=== PATIENT | female | born 1990 | race Caucasian/White ===

== ENCOUNTER 2016-11-20 22:53 | Inpatient (IN) | payer MEDICAID ==
[~2016-11-20 22:53] MED LIST: BENADRYL25 M3 PO; COLACE100 M1 PO; DELTASONE20 MG PO; FEROSUL325 M1 PO; NORCO 5-325 TA1 EACH PO; OMEPRAZOLE20 M4 PO; OXYCODONE HCL5 M1 PO; PREDNISONE10 M1 PO; PROGRAF IV; PROGRAF1 M1 PO; SENOKOT-S TABL1 EACH PO; ZOFRAN ODT4 MG PO
[2016-11-21 00:31] LABS: BASO % 0.7 % (0-2); BASO ABSOLUTE COUNT 0.1 tho/cmm (0.0-0.2); EOS % 0.7 % (0-7); EOSINOPHIL ABSOLUTE COUNT 0.1 tho/cmm (0.0-0.7); HCT-HEMATOCRIT 28.1 % (34.0-49.0); HGB-HEMOGLOBIN 8.5 gm/dl (12.0-15.5); IMMATURE GRANULOCYTES ABSOLUTE 0.01 tho/cmm (0-0.03); IMMATURE GRANULOCYTES PERCENT 0.1 % (0-0.3); LYMPH % 11.9 % (20-45); LYMPH ABSOLUTE COUNT 0.9 tho/cmm (0.8-4.5); MCH (MEAN CORPUSCULAR HGB) 21.7 pg (28.0-32.0); MCHC MEAN CORPUSCULAR HGB CONC 30.2 % (32.0-36.0); MCV (MEAN CELL VOLUME) 71.9 fl (82.0-96.0); MONO % 4.9 % (0-12); MONOCYTE ABSOLUTE COUNT 0.4 tho/cmm (0.0-1.2); NEUTROPHILS % 81.7 % (40-80); PLATELET COUNT 211 tho/cmm (150-450); RED BLOOD COUNT 3.91 mil/cmm (4.00-5.20); RED CELL DISTRIBUTION WIDTH 18.8 % (12.4-16.4); WHITE BLOOD COUNT 7.3 tho/cmm (4.0-10.0)
[2016-11-21 00:34] LABS: ALT/SGPT 168 U/L (12-78); AMYLASE 134 U/L (20-90); ANION GAP 15 mmol/L (0-20); AST/SGOT 259 U/L (10-40); BILIRUBIN,TOTAL 11.4 mg/dl (0-1.5); BLOOD UREA NITROGEN 10 mg/dl (6-24); CALCIUM 9.1 mg/dl (8.5-10.5); CARBON DIOXIDE-VENOUS 21 mmol/L (22-32); CHLORIDE 104 mmol/l (96-110); CREATININE 0.59 mg/dl (0.50-1.10); GLUCOSE 97 mg/dL (70-110); LIPASE 302 U/L (73-393); POTASSIUM 3.5 mmol/L (3.7-5.1); SODIUM 136 mmol/L (135-145); eGFR VALUE FOR BLACK >90 mL/Min
[2016-11-21 00:41] LABS: PREGNANCY-SERUM NEGATIVE (NEGATIVE)
[2016-11-21 00:44] LABS: ALB/GLOB RATIO 0.6 (0.8-2.0); ALBUMIN 3.4 g/dl (3.5-5.0)
[2016-11-21 01:27] LABS: ALKALINE PHOSPHATASE 1510 U/L (33-138)
[2016-11-21 02:37] LABS: URINE BILIRUBIN MODERATE (NEG); URINE BLOOD MODERATE (NEG); URINE GLUCOSE (UA) NEGATIVE (NEG); URINE KETONE MODERATE (NEG); URINE LEUKOCYTE ESTERASE POSITIVE (NEG); URINE NITRITE POSITIVE (NEG); URINE PROTEIN SMALL (NEG)
[2016-11-21 02:41] LABS: URINE APPEARANCE HAZY; URINE COLOR DARK YELLOW
[2016-11-21 02:47] LABS: URINE WBC 20-25 /[HPF] (0-5)
[2016-11-21 02:48] LABS: URINE BACTERIA 4+; URINE EPITHELIAL CELLS RARE /[HPF] (0-10)
[2016-11-21 07:26] LABS: INR 1.1 INR (0.9-1.1); PROTHROMBIN TIME 12.7 SECONDS (9.0-13.6)
[2016-11-21 07:32] LABS: ALCOHOL (ETOH) <10 mg/dl (<10); PHOSPHOROUS 2.1 mg/dl (2.5-4.9)
[2016-11-21 07:34] LABS: C-REACTIVE PROTEIN <0.3 mg/dl (0-0.9)
[2016-11-21 08:19] LABS: PROCALCITONIN 0.19 ng/ml (0.05-0.09)
[2016-11-21 20:53] LABS: C-REACTIVE PROTEIN 0.4 mg/dl (0-0.9); MAGNESIUM 2.1 mg/dl (1.3-2.6); PHOSPHOROUS 1.7 mg/dl (2.5-4.9)
[2016-11-21 21:06] LABS: PROCALCITONIN 0.22 ng/ml (0.05-0.09)
[2016-11-22 06:17] LABS: INR 1.1 INR (0.9-1.1); PROTHROMBIN TIME 12.5 SECONDS (9.0-13.6)
[2016-11-22 06:23] LABS: ALB/GLOB RATIO 0.6 (0.8-2.0); ALBUMIN 2.9 g/dl (3.5-5.0); ALT/SGPT 207 U/L (12-78); AMYLASE 72 U/L (20-90); ANION GAP 16 mmol/L (0-20); AST/SGOT 300 U/L (10-40); BILIRUBIN,DIRECT 9.3 mg/dl (0.0-0.3); BILIRUBIN,INDIRECT 1.3 mg/dL (0.0-1.0); BILIRUBIN,TOTAL 10.6 mg/dl (0-1.5); BLOOD UREA NITROGEN 7 mg/dl (6-24); CALCIUM 8.7 mg/dl (8.5-10.5); CARBON DIOXIDE-VENOUS 18 mmol/L (22-32); CHLORIDE 105 mmol/l (96-110); CREATININE 0.57 mg/dl (0.50-1.10); GLUCOSE 99 mg/dL (70-110); LIPASE 132 U/L (73-393); POTASSIUM 3.5 mmol/L (3.7-5.1); SODIUM 135 mmol/L (135-145); eGFR VALUE FOR BLACK >90 mL/Min
[2016-11-22 06:36] LABS: C-REACTIVE PROTEIN 0.4 mg/dl (0-0.9)
[2016-11-22 06:37] LABS: BASO % 0.4 % (0-2); EOS % 0.2 % (0-7); HCT-HEMATOCRIT 26.5 % (34.0-49.0); HGB-HEMOGLOBIN 7.8 gm/dl (12.0-15.5); IMMATURE GRANULOCYTES ABSOLUTE 0.01 tho/cmm (0-0.03); IMMATURE GRANULOCYTES PERCENT 0.2 % (0-0.3); LYMPH % 10.7 % (20-45); LYMPH ABSOLUTE COUNT 0.5 tho/cmm (0.8-4.5); MCH (MEAN CORPUSCULAR HGB) 21.5 pg (28.0-32.0); MCHC MEAN CORPUSCULAR HGB CONC 29.4 % (32.0-36.0); MONO % 1.4 % (0-12); MONOCYTE ABSOLUTE COUNT 0.1 tho/cmm (0.0-1.2); NEUTROPHIL ABSOLUTE COUNT 4.4 tho/cmm (1.6-8.0); NEUTROPHIL-AUTOMATED 4.4 tho/cmm (1.6-8.0); NEUTROPHILS % 87.1 % (40-80); PLATELET COUNT 141 tho/cmm (150-450); RED BLOOD COUNT 3.63 mil/cmm (4.00-5.20); RED CELL DISTRIBUTION WIDTH 18.8 % (12.4-16.4); WHITE BLOOD COUNT 5.1 tho/cmm (4.0-10.0)
[2016-11-22 06:51] LABS: ALKALINE PHOSPHATASE 1246 U/L (33-138)
[2016-11-22 07:35] LABS: ESR-ERYTHROCYTE SED RATE 69 mm/hr (0-20)
== END 2016-11-22 16:45 | disposition other institution (70) | DRG 872 ==
LOC: EDMED 22:53 → 5WE 11-21 12:00
PROVIDERS: Hospitalist; Internal Medicine; Physician Assistant; ADMIT Hospitalist
PROC: 3E0F7GC Introduction of Other Therapeutic Substance into Respiratory Tract, Via Natural or Artificial Opening (ICD-10-PCS; principal; 2016-11-21)
DX: A41.9 Sepsis, unspecified organism (principal); T86.41 Liver transplant rejection; K83.0 Cholangitis; K51.90 Ulcerative colitis, unspecified, without complications; N39.0 Urinary tract infection, site not specified; Z94.4 Liver transplant status; D50.9 Iron deficiency anemia, unspecified; K72.90 Hepatic failure, unspecified without coma; R94.5 Abnormal results of liver function studies; Z91.19 Patient's noncompliance with other medical treatment and regimen; Z92.25 Personal history of immunosuppression therapy; B96.89 Other specified bacterial agents as the cause of diseases classified elsewhere
CPT/HCPCS: G0480; J0744; J1170; J1200; J2270; J2405; J2920; J7030; J7507; J7512

== ENCOUNTER 2016-12-04 18:13 | Emergency (ER) | payer MEDICAID ==
[2016-12-04 19:27] LABS: BASO % 0.7 % (0-2); EOS % 1.1 % (0-7); EOSINOPHIL ABSOLUTE COUNT 0.1 tho/cmm (0.0-0.7); HCT-HEMATOCRIT 30.3 % (34.0-49.0); HGB-HEMOGLOBIN 8.9 gm/dl (12.0-15.5); IMMATURE GRANULOCYTES ABSOLUTE 0.01 tho/cmm (0-0.03); IMMATURE GRANULOCYTES PERCENT 0.2 % (0-0.3); LYMPH % 16.8 % (20-45); LYMPH ABSOLUTE COUNT 0.9 tho/cmm (0.8-4.5); MCH (MEAN CORPUSCULAR HGB) 20.8 pg (28.0-32.0); MCHC MEAN CORPUSCULAR HGB CONC 29.4 % (32.0-36.0); MEAN PLATELET VOLUME 10.6 cmc (9.4-12.4); MONO % 5.6 % (0-12); MONOCYTE ABSOLUTE COUNT 0.3 tho/cmm (0.0-1.2); NEUTROPHIL ABSOLUTE COUNT 4.1 tho/cmm (1.6-8.0); NEUTROPHIL-AUTOMATED 4.1 tho/cmm (1.6-8.0); NEUTROPHILS % 75.6 % (40-80); PLATELET COUNT 359 tho/cmm (150-450); RED BLOOD COUNT 4.27 mil/cmm (4.00-5.20); RED CELL DISTRIBUTION WIDTH 21.5 % (12.4-16.4); WHITE BLOOD COUNT 5.4 tho/cmm (4.0-10.0)
[2016-12-04 19:41] LABS: URINE APPEARANCE HAZY; URINE BILIRUBIN MODERATE (NEG); URINE BLOOD NEGATIVE (NEG); URINE COLOR DARK YELLOW; URINE GLUCOSE (UA) NEGATIVE (NEG); URINE KETONE MODERATE (NEG); URINE LEUKOCYTE ESTERASE POSITIVE (NEG); URINE NITRITE NEGATIVE (NEG); URINE PROTEIN SMALL (NEG)
[2016-12-04 19:43] LABS: PREGNANCY-SERUM NEGATIVE (NEGATIVE)
[2016-12-04 19:55] LABS: ALB/GLOB RATIO 0.7 (0.8-2.0); ALBUMIN 3.5 g/dl (3.5-5.0); ALT/SGPT 161 U/L (12-78); ANION GAP 15 mmol/L (0-20); AST/SGOT 178 U/L (10-40); BILIRUBIN,DIRECT 7.6 mg/dl (0.0-0.3); BILIRUBIN,INDIRECT 1.2 mg/dL (0.0-1.0); BILIRUBIN,TOTAL 8.8 mg/dl (0-1.5); BLOOD UREA NITROGEN 7 mg/dl (6-24); CALCIUM 8.7 mg/dl (8.5-10.5); CARBON DIOXIDE-VENOUS 20 mmol/L (22-32); CHLORIDE 106 mmol/l (96-110); CREATININE 0.53 mg/dl (0.50-1.10); GLUCOSE 83 mg/dL (70-110); LIPASE 259 U/L (73-393); POTASSIUM 3.8 mmol/L (3.7-5.1); SODIUM 137 mmol/L (135-145); eGFR VALUE FOR BLACK >90 mL/Min
[2016-12-04 19:57] LABS: URINE AMORPHOUS 1+; URINE RBC RARE /[HPF] (0-5); URINE WBC RARE /[HPF] (0-5)
[2016-12-04 20:06] LABS: ALKALINE PHOSPHATASE 1310 U/L (33-138)
[2016-12-04 20:21] LABS: INR 1.1 INR (0.9-1.1); PROTHROMBIN TIME 12.7 SECONDS (9.0-13.6)
[2016-12-04] MEDS ORDERED: BENADRYL25 M3 PO (22:10)
[2016-12-04] MEDS ORDERED: PHENERGAN12.5 M2 PR (22:10)
== END 2016-12-04 22:20 ==
LOC: EDMED 18:13
PROVIDERS: Emergency Medicine
DX: D64.9 Anemia, unspecified (principal); T86.810 Lung transplant rejection; R10.9 Unspecified abdominal pain; Z90.49 Acquired absence of other specified parts of digestive tract
CPT/HCPCS: J1170; J1200; J2405

== ENCOUNTER 2016-12-08 13:45 | Emergency (ER) | payer MEDICAID ==
[~2016-12-08 13:45] MED LIST changes: +PHENERGAN12.5 M2 PR
[2016-12-08] MEDS ORDERED: NORCO 5-325 TA1 EACH PO (15:44)
[2016-12-09] MEDS ORDERED: NORCO 5-325 TA1 EACH PO (01:37)
[2016-12-09] MEDS ORDERED: PREDNISONE PO (05:24)
[2016-12-09] MEDS ORDERED: PROGRAF0.5 M1 PO (05:25)
[2016-12-09] MEDS ORDERED: CIPRO250 M2 PO (15:02)
== END 2016-12-08 15:50 ==
LOC: EDMED 13:45
PROC: 2W39XYZ Immobilization of Left Upper Extremity using Other Device (ICD-10-PCS; principal; 2016-12-08)
DX: S66.912A Strain of unspecified muscle, fascia and tendon at wrist and hand level, left hand, initial encounter (principal); W06.XXXA Fall from bed, initial encounter; Y92.009 Unspecified place in unspecified non-institutional (private) residence as the place of occurrence of the external cause
CPT/HCPCS: J1170

== ENCOUNTER 2016-12-09 01:22 | Observation (INO) | payer MEDICAID ==
[2016-12-09] MEDS ORDERED: NORCO 5-325 TA1 EACH PO (01:37)
[2016-12-09 03:21] LABS: BASO % 0.3 % (0-2); EOS % 0.6 % (0-7); HCT-HEMATOCRIT 28.3 % (34.0-49.0); HGB-HEMOGLOBIN 8.3 gm/dl (12.0-15.5); IMMATURE GRANULOCYTES ABSOLUTE 0.01 tho/cmm (0-0.03); IMMATURE GRANULOCYTES PERCENT 0.2 % (0-0.3); LYMPH % 19.7 % (20-45); LYMPH ABSOLUTE COUNT 1.3 tho/cmm (0.8-4.5); MCH (MEAN CORPUSCULAR HGB) 21.1 pg (28.0-32.0); MCHC MEAN CORPUSCULAR HGB CONC 29.3 % (32.0-36.0); MCV (MEAN CELL VOLUME) 71.8 fl (82.0-96.0); MONO % 7.4 % (0-12); MONOCYTE ABSOLUTE COUNT 0.5 tho/cmm (0.0-1.2); NEUTROPHIL ABSOLUTE COUNT 4.7 tho/cmm (1.6-8.0); NEUTROPHIL-AUTOMATED 4.7 tho/cmm (1.6-8.0); NEUTROPHILS % 71.8 % (40-80); PLATELET COUNT 194 tho/cmm (150-450); RED BLOOD COUNT 3.94 mil/cmm (4.00-5.20); RED CELL DISTRIBUTION WIDTH 21.8 % (12.4-16.4); WHITE BLOOD COUNT 6.5 tho/cmm (4.0-10.0)
[2016-12-09 03:23] LABS: PROTHROMBIN TIME 11.8 SECONDS (9.0-13.6)
[2016-12-09 03:38] LABS: URINE BILIRUBIN MODERATE (NEG); URINE BLOOD LARGE (NEG); URINE GLUCOSE (UA) NEGATIVE (NEG); URINE KETONE SMALL (NEG); URINE LEUKOCYTE ESTERASE POSITIVE (NEG); URINE NITRITE NEGATIVE (NEG); URINE PROTEIN MODERATE (NEG)
[2016-12-09 03:42] LABS: URINE APPEARANCE HAZY; URINE COLOR BROWN
[2016-12-09 04:00] LABS: ALB/GLOB RATIO 0.6 (0.8-2.0); ALBUMIN 3.2 g/dl (3.5-5.0); ALT/SGPT 134 U/L (12-78); AST/SGOT 149 U/L (10-40); BLOOD UREA NITROGEN 5 mg/dl (6-24); CALCIUM 8.5 mg/dl (8.5-10.5); CARBON DIOXIDE-VENOUS 20 mmol/L (22-32); CHLORIDE 105 mmol/l (96-110); CREATININE 0.52 mg/dl (0.50-1.10); GLUCOSE 103 mg/dL (70-110); SODIUM 136 mmol/L (135-145); eGFR VALUE FOR BLACK >90 mL/Min
[2016-12-09 04:02] LABS: ANION GAP 14 mmol/L (0-20); C-REACTIVE PROTEIN <0.3 mg/dl (0-0.9)
[2016-12-09 04:24] LABS: PROCALCITONIN 0.11 ng/ml (0.05-0.09)
[2016-12-09 04:41] LABS: ALKALINE PHOSPHATASE 1105 U/L (33-138)
[2016-12-09] MEDS ORDERED: PREDNISONE PO (05:24)
[2016-12-09] MEDS ORDERED: PROGRAF0.5 M1 PO (05:25)
[2016-12-09] MEDS ORDERED: CIPRO250 M2 PO (15:02)
== END 2016-12-09 16:13 ==
LOC: EDMED 01:22 → EMR2 04:24 → CAR1 05:14
PROVIDERS: Emergency Medicine; ADMIT Hospitalist
DX: S59.202A Unspecified physeal fracture of lower end of radius, left arm, initial encounter for closed fracture (principal); E87.6 Hypokalemia; D64.9 Anemia, unspecified; K76.9 Liver disease, unspecified; Z87.442 Personal history of urinary calculi; Z87.19 Personal history of other diseases of the digestive system; Z90.49 Acquired absence of other specified parts of digestive tract; Z79.899 Other long term (current) drug therapy; W01.0XXA Fall on same level from slipping, tripping and stumbling without subsequent striking against object, initial encounter; Z98.890 Other specified postprocedural states
CPT/HCPCS: G0378; G8978-GP-CI; G8979-GP-CI; G8980-GP-CI; J0696; J1170; J1200; J2060; J2270; J2405; J7030; J7512

== ENCOUNTER 2016-12-16 18:41 | Inpatient (IN) | payer MEDICAID ==
[~2016-12-16 18:41] MED LIST changes: +CIPRO250 M2 PO; +PREDNISONE PO; +PROGRAF0.5 M1 PO
[2016-12-16 19:54] LABS: BASO % 0.5 % (0-2); EOS % 0.7 % (0-7); HGB-HEMOGLOBIN 8.9 gm/dl (12.0-15.5); LYMPH % 22.9 % (20-45); LYMPH ABSOLUTE COUNT 0.9 tho/cmm (0.8-4.5); MCH (MEAN CORPUSCULAR HGB) 20.7 pg (28.0-32.0); MCHC MEAN CORPUSCULAR HGB CONC 28.7 % (32.0-36.0); MCV (MEAN CELL VOLUME) 72.1 fl (82.0-96.0); MONOCYTE ABSOLUTE COUNT 0.3 tho/cmm (0.0-1.2); NEUTROPHIL ABSOLUTE COUNT 2.8 tho/cmm (1.6-8.0); NEUTROPHIL-AUTOMATED 2.8 tho/cmm (1.6-8.0); NEUTROPHILS % 68.9 % (40-80); PLATELET COUNT 347 tho/cmm (150-450); RED CELL DISTRIBUTION WIDTH 21.5 % (12.4-16.4)
[2016-12-16 19:55] LABS: PROTHROMBIN TIME 11.8 SECONDS (9.0-13.6)
[2016-12-16 20:12] LABS: ALB/GLOB RATIO 0.6 (0.8-2.0); ALBUMIN 3.3 g/dl (3.5-5.0); ALT/SGPT 132 U/L (12-78); ANION GAP 16 mmol/L (0-20); AST/SGOT 152 U/L (10-40); BILIRUBIN,TOTAL 6.8 mg/dl (0-1.5); BILIRUBIN,TOTAL 7.1 mg/dl (0-1.5); BLOOD UREA NITROGEN 11 mg/dl (6-24); CALCIUM 8.7 mg/dl (8.5-10.5); CARBON DIOXIDE-VENOUS 17 mmol/L (22-32); CHLORIDE 111 mmol/l (96-110); CREATININE 0.57 mg/dl (0.50-1.10); GLUCOSE 87 mg/dL (70-110); LIPASE 351 U/L (73-393); POTASSIUM 3.8 mmol/L (3.7-5.1); SODIUM 140 mmol/L (135-145); eGFR VALUE FOR BLACK >90 mL/Min
[2016-12-16 20:22] LABS: ALKALINE PHOSPHATASE 961 U/L (33-138)
[2016-12-16 21:03] LABS: URINE BILIRUBIN MODERATE (NEG); URINE BLOOD SMALL (NEG); URINE GLUCOSE (UA) NEGATIVE (NEG); URINE KETONE MODERATE (NEG); URINE LEUKOCYTE ESTERASE POSITIVE (NEG); URINE NITRITE POSITIVE (NEG); URINE PROTEIN MODERATE (NEG)
[2016-12-16 21:04] LABS: URINE APPEARANCE HAZY; URINE COLOR DARK YELLOW
[2016-12-16 21:12] LABS: URINE RBC 0-3 /[HPF] (0-5)
[2016-12-16 21:13] LABS: URINE BACTERIA 2+; URINE MUCUS 1+
[2016-12-17 05:04] LABS: BASO % 0.3 % (0-2); EOS % 1.5 % (0-7); EOSINOPHIL ABSOLUTE COUNT 0.1 tho/cmm (0.0-0.7); HCT-HEMATOCRIT 26.4 % (34.0-49.0); HGB-HEMOGLOBIN 7.4 gm/dl (12.0-15.5); LYMPH % 32.7 % (20-45); LYMPH ABSOLUTE COUNT 1.1 tho/cmm (0.8-4.5); MCH (MEAN CORPUSCULAR HGB) 20.4 pg (28.0-32.0); MCV (MEAN CELL VOLUME) 72.9 fl (82.0-96.0); MONOCYTE ABSOLUTE COUNT 0.3 tho/cmm (0.0-1.2); NEUTROPHILS % 57.5 % (40-80); RED BLOOD COUNT 3.62 mil/cmm (4.00-5.20); RED CELL DISTRIBUTION WIDTH 21.3 % (12.4-16.4); WHITE BLOOD COUNT 3.4 tho/cmm (4.0-10.0)
[2016-12-17 05:47] LABS: CHLORIDE 116 mmol/l (96-110); POTASSIUM 3.7 mmol/L (3.7-5.1); SODIUM 143 mmol/L (135-145)
[2016-12-17 05:59] LABS: ANION GAP 14 mmol/L (0-20); BLOOD UREA NITROGEN 8 mg/dl (6-24); CALCIUM 7.7 mg/dl (8.5-10.5); CARBON DIOXIDE-VENOUS 17 mmol/L (22-32); CREATININE 0.54 mg/dl (0.50-1.10); eGFR VALUE FOR BLACK >90 mL/Min
[2016-12-17 06:18] LABS: GLUCOSE 63 mg/dL (70-110)
[2016-12-17 07:00] LABS: PLATELET COUNT 262 tho/cmm (150-450)
[2016-12-17 16:38] LABS: HCT-HEMATOCRIT 26.3 % (34.0-49.0); HGB-HEMOGLOBIN 7.4 gm/dl (12.0-15.5); MCV (MEAN CELL VOLUME) 73.1 fl (82.0-96.0); RED CELL DISTRIBUTION WIDTH 20.9 % (12.4-16.4)
[2016-12-18 05:35] LABS: BASO % 0.5 % (0-2); HCT-HEMATOCRIT 29.5 % (34.0-49.0); HGB-HEMOGLOBIN 8.2 gm/dl (12.0-15.5); LYMPH % 18.8 % (20-45); LYMPH ABSOLUTE COUNT 0.4 tho/cmm (0.8-4.5); MCH (MEAN CORPUSCULAR HGB) 20.2 pg (28.0-32.0); MCV (MEAN CELL VOLUME) 72.8 fl (82.0-96.0); MONO % 1.4 % (0-12); NEUTROPHIL ABSOLUTE COUNT 1.7 tho/cmm (1.6-8.0); NEUTROPHIL-AUTOMATED 1.7 tho/cmm (1.6-8.0); NEUTROPHILS % 79.3 % (40-80); PLATELET COUNT 294 tho/cmm (150-450); RED BLOOD COUNT 4.05 mil/cmm (4.00-5.20); RED CELL DISTRIBUTION WIDTH 20.7 % (12.4-16.4); WHITE BLOOD COUNT 2.2 tho/cmm (4.0-10.0)
[2016-12-18 05:54] LABS: ALB/GLOB RATIO 0.6 (0.8-2.0); ALBUMIN 2.7 g/dl (3.5-5.0); ALT/SGPT 127 U/L (12-78); ANION GAP 12 mmol/L (0-20); AST/SGOT 158 U/L (10-40); BILIRUBIN,TOTAL 5.3 mg/dl (0-1.5); BLOOD UREA NITROGEN 10 mg/dl (6-24); CALCIUM 8.4 mg/dl (8.5-10.5); CARBON DIOXIDE-VENOUS 19 mmol/L (22-32); CHLORIDE 113 mmol/l (96-110); CREATININE 0.54 mg/dl (0.50-1.10); MAGNESIUM 2.2 mg/dl (1.8-2.6); POTASSIUM 3.9 mmol/L (3.7-5.1); SODIUM 140 mmol/L (135-145); eGFR VALUE FOR BLACK >90 mL/Min
[2016-12-18 06:12] LABS: ALKALINE PHOSPHATASE 845 U/L (33-138); GLUCOSE 147 mg/dL (70-110)
[2016-12-18 06:21] LABS: MCHC MEAN CORPUSCULAR HGB CONC 27.8 % (32.0-36.0)
[2016-12-19 05:48] LABS: HCT-HEMATOCRIT 26.9 % (34.0-49.0); HGB-HEMOGLOBIN 7.4 gm/dl (12.0-15.5); IMMATURE GRANULOCYTES ABSOLUTE 0.01 tho/cmm (0-0.03); IMMATURE GRANULOCYTES PERCENT 0.3 % (0-0.3); LYMPH % 13.4 % (20-45); LYMPH ABSOLUTE COUNT 0.4 tho/cmm (0.8-4.5); MCH (MEAN CORPUSCULAR HGB) 20.2 pg (28.0-32.0); MCV (MEAN CELL VOLUME) 73.3 fl (82.0-96.0); MONO % 3.4 % (0-12); MONOCYTE ABSOLUTE COUNT 0.1 tho/cmm (0.0-1.2); NEUTROPHIL ABSOLUTE COUNT 2.7 tho/cmm (1.6-8.0); NEUTROPHIL-AUTOMATED 2.7 tho/cmm (1.6-8.0); NEUTROPHILS % 82.9 % (40-80); PLATELET COUNT 222 tho/cmm (150-450); RED BLOOD COUNT 3.67 mil/cmm (4.00-5.20); RED CELL DISTRIBUTION WIDTH 20.8 % (12.4-16.4); WHITE BLOOD COUNT 3.2 tho/cmm (4.0-10.0)
[2016-12-19 05:50] LABS: MCHC MEAN CORPUSCULAR HGB CONC <29.0 % (32.0-36.0)
[2016-12-19 06:04] LABS: ALB/GLOB RATIO 0.5 (0.8-2.0); ALBUMIN 2.6 g/dl (3.5-5.0); ALT/SGPT 154 U/L (12-78); ANION GAP 13 mmol/L (0-20); AST/SGOT 164 U/L (10-40); BILIRUBIN,DIRECT 4.3 mg/dl (0.0-0.3); BILIRUBIN,INDIRECT 0.3 mg/dL (0.0-1.0); BILIRUBIN,TOTAL 4.6 mg/dl (0-1.5); BLOOD UREA NITROGEN 7 mg/dl (6-24); CARBON DIOXIDE-VENOUS 19 mmol/L (22-32); CHLORIDE 115 mmol/l (96-110); CREATININE 0.56 mg/dl (0.50-1.10); GLUCOSE 125 mg/dL (70-110); POTASSIUM 3.8 mmol/L (3.7-5.1); SODIUM 143 mmol/L (135-145); eGFR VALUE FOR BLACK >90 mL/Min
[2016-12-19 06:05] LABS: ALKALINE PHOSPHATASE 759 U/L (33-138)
[2016-12-20 05:28] LABS: HCT-HEMATOCRIT 28.7 % (34.0-49.0); IMMATURE GRANULOCYTES ABSOLUTE 0.01 tho/cmm (0-0.03); IMMATURE GRANULOCYTES PERCENT 0.3 % (0-0.3); LYMPH % 15.2 % (20-45); LYMPH ABSOLUTE COUNT 0.6 tho/cmm (0.8-4.5); MCH (MEAN CORPUSCULAR HGB) 20.4 pg (28.0-32.0); MCV (MEAN CELL VOLUME) 73.2 fl (82.0-96.0); MEAN PLATELET VOLUME 10.4 cmc (9.4-12.4); MONO % 5.2 % (0-12); MONOCYTE ABSOLUTE COUNT 0.2 tho/cmm (0.0-1.2); NEUTROPHILS % 79.3 % (40-80); PLATELET COUNT 283 tho/cmm (150-450); RED BLOOD COUNT 3.92 mil/cmm (4.00-5.20); RED CELL DISTRIBUTION WIDTH 20.6 % (12.4-16.4); WHITE BLOOD COUNT 3.8 tho/cmm (4.0-10.0)
[2016-12-20 05:33] LABS: MCHC MEAN CORPUSCULAR HGB CONC 27.9 % (32.0-36.0)
[2016-12-20 05:57] LABS: ALB/GLOB RATIO 0.6 (0.8-2.0); ALBUMIN 2.8 g/dl (3.5-5.0); ALT/SGPT 195 U/L (12-78); ANION GAP 11 mmol/L (0-20); AST/SGOT 188 U/L (10-40); BILIRUBIN,TOTAL 4.5 mg/dl (0-1.5); CALCIUM 8.3 mg/dl (8.5-10.5); CARBON DIOXIDE-VENOUS 23 mmol/L (22-32); CHLORIDE 109 mmol/l (96-110); CREATININE 0.55 mg/dl (0.50-1.10); GLUCOSE 126 mg/dL (70-110); POTASSIUM 3.8 mmol/L (3.7-5.1); SODIUM 139 mmol/L (135-145); eGFR VALUE FOR BLACK >90 mL/Min
[2016-12-20 06:06] LABS: BLOOD UREA NITROGEN 8 mg/dl (6-24)
[2016-12-20 06:12] LABS: ALKALINE PHOSPHATASE 723 U/L (33-138)
[2016-12-21 06:49] LABS: EOS % 0.4 % (0-7); HCT-HEMATOCRIT 29.6 % (34.0-49.0); HGB-HEMOGLOBIN 8.3 gm/dl (12.0-15.5); IMMATURE GRANULOCYTES ABSOLUTE 0.01 tho/cmm (0-0.03); IMMATURE GRANULOCYTES PERCENT 0.2 % (0-0.3); LYMPH % 16.2 % (20-45); LYMPH ABSOLUTE COUNT 0.8 tho/cmm (0.8-4.5); MCH (MEAN CORPUSCULAR HGB) 20.2 pg (28.0-32.0); MONOCYTE ABSOLUTE COUNT 0.3 tho/cmm (0.0-1.2); NEUTROPHIL ABSOLUTE COUNT 3.6 tho/cmm (1.6-8.0); NEUTROPHIL-AUTOMATED 3.6 tho/cmm (1.6-8.0); NEUTROPHILS % 77.2 % (40-80); PLATELET COUNT 262 tho/cmm (150-450); RED BLOOD COUNT 4.11 mil/cmm (4.00-5.20); RED CELL DISTRIBUTION WIDTH 20.6 % (12.4-16.4); WHITE BLOOD COUNT 4.6 tho/cmm (4.0-10.0)
[2016-12-21 06:59] LABS: ALB/GLOB RATIO 0.6 (0.8-2.0); ALBUMIN 2.9 g/dl (3.5-5.0); ALT/SGPT 254 U/L (12-78); ANION GAP 11 mmol/L (0-20); AST/SGOT 242 U/L (10-40); BILIRUBIN,TOTAL 4.2 mg/dl (0-1.5); BLOOD UREA NITROGEN 11 mg/dl (6-24); CALCIUM 8.2 mg/dl (8.5-10.5); CARBON DIOXIDE-VENOUS 26 mmol/L (22-32); CHLORIDE 109 mmol/l (96-110); CREATININE 0.62 mg/dl (0.50-1.10); GLUCOSE 123 mg/dL (70-110); MAGNESIUM 2.7 mg/dl (1.8-2.6); SODIUM 142 mmol/L (135-145); eGFR VALUE FOR BLACK >90 mL/Min
[2016-12-21 07:03] LABS: ALKALINE PHOSPHATASE 770 U/L (33-138)
[2016-12-22] MEDS ORDERED: PREDNISONE PO (09:30)
== END 2016-12-22 10:21 | DRG 386 ==
LOC: EDMED 18:41 → EMR2 21:23 → CAR1 21:55
PROVIDERS: Internal Medicine; Nurse Practitioner; Nurse Practitioner Family; ADMIT Family Medicine
DX: K51.90 Ulcerative colitis, unspecified, without complications (principal); D62 Acute posthemorrhagic anemia; T86.41 Liver transplant rejection; K83.0 Cholangitis; D89.9 Disorder involving the immune mechanism, unspecified; K86.1 Other chronic pancreatitis; R16.1 Splenomegaly, not elsewhere classified; N39.0 Urinary tract infection, site not specified; Z94.4 Liver transplant status; D50.9 Iron deficiency anemia, unspecified; E86.0 Dehydration; G89.29 Other chronic pain; K59.00 Constipation, unspecified; K72.90 Hepatic failure, unspecified without coma; Z79.52 Long term (current) use of systemic steroids; Z91.19 Patient's noncompliance with other medical treatment and regimen; S62.102D Fracture of unspecified carpal bone, left wrist, subsequent encounter for fracture with routine healing; W01.0XXD Fall on same level from slipping, tripping and stumbling without subsequent striking against object, subsequent encounter
CPT/HCPCS: J0696; J1200; J1650; J2270; J2405; J2920; J7030; J7512; Q9967

== ENCOUNTER 2017-01-25 11:06 | Inpatient (IN) | payer MEDICAID ==
[2017-01-25] MEDS ORDERED: PREDNISONE10 M1 PO (11:43)
[2017-01-25] MEDS ORDERED: IBUPROFEN600 M1 PO (11:44)
[2017-01-25 12:08] LABS: BASO % 0.9 % (0-2); EOS % 2.6 % (0-7); EOSINOPHIL ABSOLUTE COUNT 0.1 tho/cmm (0.0-0.7); HCT-HEMATOCRIT 32.5 % (34.0-49.0); HGB-HEMOGLOBIN 9.5 gm/dl (12.0-15.5); IMMATURE GRANULOCYTES ABSOLUTE 0.01 tho/cmm (0-0.03); IMMATURE GRANULOCYTES PERCENT 0.2 % (0-0.3); LYMPH % 27.5 % (20-45); LYMPH ABSOLUTE COUNT 1.3 tho/cmm (0.8-4.5); MCHC MEAN CORPUSCULAR HGB CONC 29.2 % (32.0-36.0); MCV (MEAN CELL VOLUME) 67.6 fl (82.0-96.0); MONO % 7.1 % (0-12); MONOCYTE ABSOLUTE COUNT 0.3 tho/cmm (0.0-1.2); NEUTROPHIL ABSOLUTE COUNT 2.9 tho/cmm (1.6-8.0); NEUTROPHIL-AUTOMATED 2.9 tho/cmm (1.6-8.0); NEUTROPHILS % 61.7 % (40-80); PLATELET COUNT 353 tho/cmm (150-450); RED BLOOD COUNT 4.81 mil/cmm (4.00-5.20); RED CELL DISTRIBUTION WIDTH 21.5 % (12.4-16.4); WHITE BLOOD COUNT 4.6 tho/cmm (4.0-10.0)
[2017-01-25 12:16] LABS: MCH (MEAN CORPUSCULAR HGB) 19.8 pg (28.0-32.0)
[2017-01-25 12:27] LABS: ALB/GLOB RATIO 0.6 (0.8-2.0); ALBUMIN 3.3 g/dl (3.5-5.0); ALT/SGPT 187 U/L (12-78); ANION GAP 19 mmol/L (0-20); AST/SGOT 351 U/L (10-40); BILIRUBIN,TOTAL 5.4 mg/dl (0-1.5); BLOOD UREA NITROGEN 9 mg/dl (6-24); CARBON DIOXIDE-VENOUS 19 mmol/L (22-32); CHLORIDE 105 mmol/l (96-110); CREATININE 0.66 mg/dl (0.50-1.10); GLUCOSE 95 mg/dL (70-110); LIPASE 689 U/L (73-393); POTASSIUM 3.8 mmol/L (3.7-5.1); SODIUM 139 mmol/L (135-145); eGFR VALUE FOR BLACK >90 mL/Min
[2017-01-25 12:35] LABS: URINE BILIRUBIN MODERATE (NEG); URINE BLOOD MODERATE (NEG); URINE GLUCOSE (UA) NEGATIVE (NEG); URINE KETONE NEGATIVE (NEG); URINE LEUKOCYTE ESTERASE POSITIVE (NEG); URINE NITRITE NEGATIVE (NEG); URINE PH 6.5 (5.0-8.0); URINE PROTEIN MODERATE (NEG)
[2017-01-25 12:37] LABS: URINE APPEARANCE CLOUDY; URINE COLOR YELLOW
[2017-01-25 12:37] LABS: ALKALINE PHOSPHATASE 1347 U/L (33-138)
[2017-01-25 12:43] LABS: URINE BACTERIA 4+
[2017-01-25 12:44] LABS: URINE EPITHELIAL CELLS N /[HPF] (0-10)
[2017-01-26 05:39] LABS: BASO % 1.1 % (0-2); EOS % 3.6 % (0-7); EOSINOPHIL ABSOLUTE COUNT 0.1 tho/cmm (0.0-0.7); HCT-HEMATOCRIT 28.2 % (34.0-49.0); HGB-HEMOGLOBIN 7.9 gm/dl (12.0-15.5); IMMATURE GRANULOCYTES ABSOLUTE 0.01 tho/cmm (0-0.03); IMMATURE GRANULOCYTES PERCENT 0.4 % (0-0.3); LYMPH % 34.4 % (20-45); MCV (MEAN CELL VOLUME) 68.8 fl (82.0-96.0); MONOCYTE ABSOLUTE COUNT 0.1 tho/cmm (0.0-1.2); NEUTROPHIL ABSOLUTE COUNT 1.6 tho/cmm (1.6-8.0); NEUTROPHIL-AUTOMATED 1.6 tho/cmm (1.6-8.0); NEUTROPHILS % 55.5 % (40-80); PLATELET COUNT 243 tho/cmm (150-450); RED CELL DISTRIBUTION WIDTH 21.4 % (12.4-16.4); WHITE BLOOD COUNT 2.8 tho/cmm (4.0-10.0)
[2017-01-26 05:41] LABS: MCH (MEAN CORPUSCULAR HGB) 19.3 pg (28.0-32.0)
[2017-01-26 05:52] LABS: ALB/GLOB RATIO 0.6 (0.8-2.0); ALBUMIN 2.6 g/dl (3.5-5.0); ALT/SGPT 158 U/L (12-78); ANION GAP 14 mmol/L (0-20); AST/SGOT 249 U/L (10-40); BILIRUBIN,DIRECT 4.7 mg/dl (0.0-0.3); BILIRUBIN,INDIRECT 0.6 mg/dL (0.0-1.0); BILIRUBIN,TOTAL 5.3 mg/dl (0-1.5); BLOOD UREA NITROGEN 5 mg/dl (6-24); CALCIUM 8.1 mg/dl (8.5-10.5); CARBON DIOXIDE-VENOUS 19 mmol/L (22-32); CHLORIDE 109 mmol/l (96-110); CREATININE 0.55 mg/dl (0.50-1.10); POTASSIUM 3.6 mmol/L (3.7-5.1); SODIUM 138 mmol/L (135-145); eGFR VALUE FOR BLACK >90 mL/Min
[2017-01-26 05:59] LABS: GLUCOSE 70 mg/dL (70-110)
[2017-01-26 06:10] LABS: ALKALINE PHOSPHATASE 1005 U/L (33-138)
[2017-01-27 05:23] LABS: ANION GAP 12 mmol/L (0-20); BLOOD UREA NITROGEN 3 mg/dl (6-24); CARBON DIOXIDE-VENOUS 22 mmol/L (22-32); CHLORIDE 110 mmol/l (96-110); CREATININE 0.54 mg/dl (0.50-1.10); POTASSIUM 3.5 mmol/L (3.7-5.1); SODIUM 140 mmol/L (135-145); eGFR VALUE FOR BLACK >90 mL/Min
[2017-01-27 05:25] LABS: BASO % 1.6 % (0-2); EOS % 3.5 % (0-7); EOSINOPHIL ABSOLUTE COUNT 0.1 tho/cmm (0.0-0.7); HGB-HEMOGLOBIN 7.7 gm/dl (12.0-15.5); IMMATURE GRANULOCYTES ABSOLUTE 0.01 tho/cmm (0-0.03); IMMATURE GRANULOCYTES PERCENT 0.4 % (0-0.3); LYMPH % 37.1 % (20-45); MCV (MEAN CELL VOLUME) 68.9 fl (82.0-96.0); MONO % 4.3 % (0-12); MONOCYTE ABSOLUTE COUNT 0.1 tho/cmm (0.0-1.2); NEUTROPHIL ABSOLUTE COUNT 1.4 tho/cmm (1.6-8.0); NEUTROPHIL-AUTOMATED 1.4 tho/cmm (1.6-8.0); NEUTROPHILS % 53.1 % (40-80); PLATELET COUNT 162 tho/cmm (150-450); RED BLOOD COUNT 3.92 mil/cmm (4.00-5.20); RED CELL DISTRIBUTION WIDTH 21.1 % (12.4-16.4); WHITE BLOOD COUNT 2.6 tho/cmm (4.0-10.0)
[2017-01-27 05:30] LABS: MCH (MEAN CORPUSCULAR HGB) 19.6 pg (28.0-32.0); MCHC MEAN CORPUSCULAR HGB CONC 28.5 % (32.0-36.0)
[2017-01-27 05:42] LABS: GLUCOSE 68 mg/dL (70-110)
[2017-01-28 06:26] LABS: BASO % 0.8 % (0-2); EOS % 2.4 % (0-7); EOSINOPHIL ABSOLUTE COUNT 0.1 tho/cmm (0.0-0.7); HCT-HEMATOCRIT 29.5 % (34.0-49.0); HGB-HEMOGLOBIN 8.5 gm/dl (12.0-15.5); LYMPH % 25.7 % (20-45); MCV (MEAN CELL VOLUME) 68.9 fl (82.0-96.0); MONO % 5.7 % (0-12); MONOCYTE ABSOLUTE COUNT 0.2 tho/cmm (0.0-1.2); NEUTROPHIL ABSOLUTE COUNT 2.4 tho/cmm (1.6-8.0); NEUTROPHIL-AUTOMATED 2.4 tho/cmm (1.6-8.0); NEUTROPHILS % 65.4 % (40-80); PLATELET COUNT 215 tho/cmm (150-450); RED BLOOD COUNT 4.28 mil/cmm (4.00-5.20); RED CELL DISTRIBUTION WIDTH 21.4 % (12.4-16.4); WHITE BLOOD COUNT 3.7 tho/cmm (4.0-10.0)
[2017-01-28 06:34] LABS: MCH (MEAN CORPUSCULAR HGB) 19.9 pg (28.0-32.0); MCHC MEAN CORPUSCULAR HGB CONC 28.8 % (32.0-36.0)
[2017-01-29 05:50] LABS: HGB-HEMOGLOBIN 8.1 gm/dl (12.0-15.5); PLATELET COUNT 297 tho/cmm (150-450)
[2017-01-29 06:06] LABS: ANION GAP 13 mmol/L (0-20); BLOOD UREA NITROGEN 3 mg/dl (6-24); CALCIUM 8.4 mg/dl (8.5-10.5); CARBON DIOXIDE-VENOUS 22 mmol/L (22-32); CHLORIDE 113 mmol/l (96-110); CREATININE 0.55 mg/dl (0.50-1.10); GLUCOSE 97 mg/dL (70-110); POTASSIUM 3.6 mmol/L (3.7-5.1); SODIUM 144 mmol/L (135-145); eGFR VALUE FOR BLACK >90 mL/Min
[2017-01-31 06:31] LABS: HGB-HEMOGLOBIN 7.7 gm/dl (12.0-15.5)
[2017-01-31 07:11] LABS: PLATELET COUNT 213 tho/cmm (150-450)
[2017-01-31 12:01] LABS: BASO % 0.6 % (0-2); EOS % 1.3 % (0-7); HCT-HEMATOCRIT 29.4 % (34.0-49.0); HGB-HEMOGLOBIN 8.4 gm/dl (12.0-15.5); LYMPH % 22.4 % (20-45); LYMPH ABSOLUTE COUNT 0.7 tho/cmm (0.8-4.5); MCH (MEAN CORPUSCULAR HGB) 19.7 pg (28.0-32.0); MCHC MEAN CORPUSCULAR HGB CONC 28.6 % (32.0-36.0); MCV (MEAN CELL VOLUME) 68.9 fl (82.0-96.0); MONO % 6.4 % (0-12); MONOCYTE ABSOLUTE COUNT 0.2 tho/cmm (0.0-1.2); NEUTROPHIL ABSOLUTE COUNT 2.2 tho/cmm (1.6-8.0); NEUTROPHIL-AUTOMATED 2.2 tho/cmm (1.6-8.0); NEUTROPHILS % 69.3 % (40-80); PLATELET COUNT 217 tho/cmm (150-450); RED BLOOD COUNT 4.27 mil/cmm (4.00-5.20); RED CELL DISTRIBUTION WIDTH 21.9 % (12.4-16.4); WHITE BLOOD COUNT 3.1 tho/cmm (4.0-10.0)
[2017-01-31 12:09] LABS: ALB/GLOB RATIO 0.6 (0.8-2.0); ALT/SGPT 174 U/L (12-78); ANION GAP 12 mmol/L (0-20); AST/SGOT 259 U/L (10-40); BILIRUBIN,TOTAL 5.8 mg/dl (0-1.5); BLOOD UREA NITROGEN 2 mg/dl (6-24); CALCIUM 8.4 mg/dl (8.5-10.5); CARBON DIOXIDE-VENOUS 23 mmol/L (22-32); CHLORIDE 110 mmol/l (96-110); CREATININE 0.64 mg/dl (0.50-1.10); GLUCOSE 94 mg/dL (70-110); POTASSIUM 3.6 mmol/L (3.7-5.1); SODIUM 141 mmol/L (135-145); eGFR VALUE FOR BLACK >90 mL/Min
[2017-01-31 12:27] LABS: ALKALINE PHOSPHATASE 852 U/L (33-138)
[2017-02-01] MEDS ORDERED: PROTONIX40 M2 PO (09:45)
[2017-02-01] MEDS ORDERED: STOP THE FOLLOWING (09:46)
== END 2017-02-01 14:00 | DRG 384 ==
LOC: EDMED 11:06 → EMR2 14:50 → 5WE 17:11
PROVIDERS: Emergency Medicine; Internal Medicine; Specialist; ADMIT Hospitalist
PROC: 0DB68ZX Excision of Stomach, Via Natural or Artificial Opening Endoscopic, Diagnostic (ICD-10-PCS; principal; 2017-01-30)
PROC: 0DB98ZX Excision of Duodenum, Via Natural or Artificial Opening Endoscopic, Diagnostic (ICD-10-PCS; 2017-01-30)
DX: K25.9 Gastric ulcer, unspecified as acute or chronic, without hemorrhage or perforation (principal); T86.41 Liver transplant rejection; N39.0 Urinary tract infection, site not specified; K51.90 Ulcerative colitis, unspecified, without complications; S93.402A Sprain of unspecified ligament of left ankle, initial encounter; D63.8 Anemia in other chronic diseases classified elsewhere; Z88.8 Allergy status to other drugs, medicaments and biological substances; E86.0 Dehydration; R74.0 Nonspecific elevation of levels of transaminase and lactic acid dehydrogenase [LDH]; K76.9 Liver disease, unspecified; Z91.19 Patient's noncompliance with other medical treatment and regimen; B95.2 Enterococcus as the cause of diseases classified elsewhere; K92.1 Melena; Z79.899 Other long term (current) drug therapy
CPT/HCPCS: J0696; J1170; J1200; J1956; J2405; J7030; J7050; J7512; Q9967